=== PATIENT | female | born 1955 | race Caucasian/White ===

== ENCOUNTER 2016-07-07 20:02 | Emergency (ER) | payer OTHER ==
[2016-07-07 20:48] LABS: BASOPHIL % 0.7 % (0-2); PLATELET COUNT 260 x10^3mcL (130-400); RED CELL DISTRIBUTION WIDTH 14.4 % (11.5-14.5)
[2016-07-07 20:57] LABS: CALCIUM 9.2 mg/dL (8.5-10.1); CARBON DIOXIDE 29.3 mmol/L (21-32); CHLORIDE SERUM 103 mmol/L (98-107); CREATININE SERUM 0.8 mg/dL (0.6-1.0); GFR1 > 60 mL/min; GLUCOSE SERUM 108 mg/dL (74-106); POTASSIUM SERUM 3.8 mmol/L (3.5-5.1); SODIUM SERUM 140 mmol/L (136-145)
[2016-07-07 21:02] LABS: ALBUMIN 3.9 g/dL (3.4-5.0); ALKALINE PHOSPHATASE 99 U/L (46-116); ALT/SGPT 15 U/L (14-59); AST/SGOT 18 U/L (15-37); BILIRUBIN TOTAL 0.57 mg/dL (0.20-1.00)
[2016-07-07 21:57] VITALS: BP 135/83
== END 2016-07-07 21:57 | disposition other institution (70) ==
LOC: ED 20:02
PROVIDERS: Emergency Medicine
DX: I16.0 Hypertensive urgency (principal); Z79.899 Other long term (current) drug therapy

== ENCOUNTER 2016-07-07 20:02 | Emergency (ER) | payer OTHER | END 2016-07-07 21:57 | disposition other institution (70) | LOC: ED 20:02 | DX: Z02.89 Encounter for other administrative examinations (principal) ==